=== PATIENT | female | born 1990 | race Caucasian/White ===

== ENCOUNTER → 2020-12-19 | Outpatient (CLI) | payer OTHER ==
[~2020-12-19] MED LIST: HYDROCODON-ACE1 EAC4 PO; LODINE CAP 300300 MG PO; ZOFRAN ODT 4 MG4 MG PO
== END ==
LOC: RAD 20:38
DX: M25.572 Pain in left ankle and joints of left foot (principal); M25.475 Effusion, left foot
CPT/HCPCS: 73610; 73630

== ENCOUNTER 2020-12-20 18:14 | Emergency (ER) | payer OTHER ==
[2020-12-20] MEDS ORDERED: ZOFRAN ODT 4 MG4 MG PO (19:15)
[2020-12-20] MEDS ORDERED: LODINE CAP 300300 MG PO (19:15)
[2020-12-20] MEDS ORDERED: HYDROCODON-ACE1 EAC4 PO (19:18)
== END 2020-12-20 19:50 | disposition home or self-care (01) ==
LOC: ER1 18:14
DX: S92.002A Unspecified fracture of left calcaneus, initial encounter for closed fracture (principal); Z88.8 Allergy status to other drugs, medicaments and biological substances; W22.8XXA Striking against or struck by other objects, initial encounter; Z90.49 Acquired absence of other specified parts of digestive tract
CPT/HCPCS: 29505; 99283

== ENCOUNTER → 2021-02-08 | Outpatient (CLI) | payer OTHER | LOC: MRI 12:59 | DX: M25.572 Pain in left ankle and joints of left foot (principal); M79.672 Pain in left foot; R60.9 Edema, unspecified; W17.89XA Other fall from one level to another, initial encounter | CPT/HCPCS: 73718; 73721 ==